=== PATIENT | male | born 1965 | race Two or more races ===

== ENCOUNTER 2017-09-23 19:58 | Emergency (ER) | payer MEDICAID ==
[~2017-09-23] VITALS: Ht 170.2 cm; Wt 99.8 kg
[2017-09-23] MEDS ORDERED: Tubing IV Cassette IV ONE (21:04)
[2017-09-23] MEDS: Metoclopramide 10mg/2ml Inj IVP ONE (21:04)
[2017-09-23 21:18] LABS: BASOPHILS % (AUTO) 1.1 % (0.0-2.0); EOSINOPHILS % (AUTO) 5.3 % (0.0-3.0); LYMPHOCYTES % (AUTO) 39.2 % (20.0-45.0); MEAN CORPUSCULAR HEMOGLOBIN 31.9 PG (27.0-31.0); MEAN CORPUSCULAR HGB CONC 34.3 G/DL (32.0-36.0); MEAN CORPUSCULAR VOLUME 93 FL (80-99); MEAN PLATELET VOLUME 9.3 FL (6.5-10.1); MONOCYTES % (AUTO) 4.7 % (1.0-10.0); NEUTROPHILS % (AUTO) 49.6 % (45.0-75.0); PLATELET COUNT 219 K/UL (150-450); RED BLOOD COUNT 5.01 M/UL (4.70-6.10); RED CELL DISTRIBUTION WIDTH 11.2 % (11.6-14.8); WHITE BLOOD COUNT 8.4 K/UL (4.8-10.8)
[2017-09-23 21:27] LABS: ANION GAP 13 mmol/L (5-15); CALCIUM 9.1 MG/DL (8.5-10.1); CARBON DIOXIDE 24 MMOL/L (21-32); CHLORIDE 98 MMOL/L (98-107); CREATININE 1.3 MG/DL (0.55-1.30); GLOMERULAR FILTRATION RATE 57.3 mL/min (>60); POTASSIUM 3.4 MMOL/L (3.5-5.1); SODIUM 135 MMOL/L (136-145)
[2017-09-23 21:34] VITALS: BP 128/82
[2017-09-23 21:35] LABS: ALANINE AMINOTRANSFERASE 27 U/L (12-78); ALBUMIN/GLOBULIN RATIO 0.9 (1.0-2.7); ALCOHOL 417 mg/dL; ASPARTATE AMINO TRANSFERASE 20 U/L (15-37); TOTAL PROTEIN 8.1 G/DL (6.4-8.2)
[2017-09-23 21:36] LABS: ACETAMINOPHEN < 2 MCG/ML (10-30)
[2017-09-23 23:01] VITALS: BP 103/66
[2017-09-24] VITALS (7 sets, daily range): BP systolic 100–132; BP diastolic 63–81
--- NOTE | 2017-09-24 03:37 | Emergency Room Report ---
History of Present Illness General Chief Complaint: Altered Level of Consciousness Source: EMS ([facility] D.O[facility] Present Illness HPI Patient was brought in by paramedics for reports of altered mental status Patient had episode of vomiting upon arrival Initially difficult to arouse and obtain history Therefore patient had IV established and extensive evaluation Patient throughout the stay has become more responsive He denied any chest pain or headache He did report drinking alcohol History of present illness however still did remain fairly limited ([facility] D.O.) Allergies: Coded Allergies: No Known Allergies (Unverified , 09/23/17) Patient History Past Medical History: see triage record Pertinent Family History: none Reviewed Nursing Documentation: PMH: Agreed, PSxH: Agreed ([facility] D.O[facility] Nursing Documentation-PMH Past Medical History: Deferred ([facility] D.O[facility] Review of Systems All Other Systems: limited - Other than the ones mentioned in the history of present illness all others are reviewed however they do stay limited due to the patient's mental status ([facility] D.O.) Physical Exam Vital Signs Date Time Temp Pulse Resp B/P (MAP) Pulse Ox O2 Delivery O2 Flow Rate FiO2 09/23/17 19:57 100 18 122/72 98 Room Air 09/23/17 21:34 97.0 4.0 Sp02 EP Interpretation: reviewed, normal General Appearance: no apparent distress Head: normocephalic, atraumatic Eyes: bilateral eye PERRL, bilateral eye EOMI ENT: normal pharynx, no angioedema Neck: full range of motion, supple, thyroid normal Respiratory: lungs clear, normal breath sounds Cardiovascular #1: regular rate, rhythm Gastrointestinal: normal bowel sounds, non tender, soft Musculoskeletal: normal inspection Neurologic: responsive - To verbal and physical stimuli Skin: normal color, no rash Lymphatic: no adenopathy ([facility] D.O[facility] Medical Decision Making Diagnostic Impression: Primary Impression: Altered level of consciousness Additional Impressions: Alcohol intoxication Qualified Codes: F10.920 - Alcohol use, unspecified with intoxication, uncomplicated Hyperglycemia Leukocytosis Qualified Codes: D72.825 - Bandemia Labs Test 09/23/17 20:55 09/23/17 21:15 White Blood Count 8.4 K/UL (4.8-10.8) Red Blood Count 5.01 M/UL (4.70-6.10) Hemoglobin 16.0 G/DL (14.2-18.0) Hematocrit 46.7 % (42.0-52.0) Mean Corpuscular Volume 93 FL (80-99) Mean Corpuscular Hemoglobin 31.9 PG (27.0-31.0) Mean Corpuscular Hemoglobin Concent 34.3 G/DL (32.0-36.0) Red Cell Distribution Width 11.2 % (11.6-14.8) Platelet Count 219 K/UL (150-450) Mean Platelet Volume 9.3 FL (6.5-10.1) Neutrophils (%) (Auto) 49.6 % (45.0-75.0) Lymphocytes (%) (Auto) 39.2 % (20.0-45.0) Monocytes (%) (Auto) 4.7 % (1.0-10.0) Eosinophils (%) (Auto) 5.3 % (0.0-3.0) Basophils (%) (Auto) 1.1 % (0.0-2.0) Sodium Level 135 MMOL/L (136-145) Potassium Level 3.4 MMOL/L (3.5-5.1) Chloride Level 98 MMOL/L (98-107) Carbon Dioxide Level 24 MMOL/L (21-32) Anion Gap 13 mmol/L (5-15) Blood Urea Nitrogen 16 mg/dL (7-18) Creatinine 1.3 MG/DL (0.55-1.30) Estimat Glomerular Filtration Rate 57.3 mL/min (>60) Glucose Level 483 MG/DL (74-106) Calcium Level 9.1 MG/DL (8.5-10.1) Total Bilirubin 0.3 MG/DL (0.2-1.0) Aspartate Amino Transf (AST/SGOT) 20 U/L (15-37) Alanine Aminotransferase (ALT/SGPT) 27 U/L (12-78) Alkaline Phosphatase 138 U/L (46-116) Total Protein 8.1 G/DL (6.4-8.2) Albumin 3.9 G/DL (3.4-5.0) Globulin 4.2 g/dL Albumin/Globulin Ratio 0.9 (1.0-2.7) Salicylates Level 1.0 ug/mL (2.8-20) Acetaminophen Level < 2 MCG/ML (10-30) Serum Alcohol 417 mg/dL Urine Opiates Screen Negative (NEGATIVE) Urine Barbiturates Screen Negative (NEGATIVE) Phencyclidine (PCP) Screen Negative (NEGATIVE) Urine Amphetamines Screen Negative (NEGATIVE) Urine Benzodiazepines Screen Negative (NEGATIVE) Urine Cocaine Screen Negative (NEGATIVE) Urine Marijuana (THC) Screen Negative (NEGATIVE) ([facility] D.O[facility] ER Course Received signout at 6:30 AM On reevaluation, patient continues to be tachycardic to 105 Patient had multiple episodes of vomiting Labs were redrawn: Blood glucose much improved after insulin and fluid. K. normalized. No anion gap. ABG was done, no acidosis, mild hypoxia. Chest x-ray was re\re shot, question of left-sided infiltrate By 8:30 AM, he is awake and oriented - states he drank a lot holiday [employer] party last night, doesn't drink a lot normally. Did not take his metformin or glyburide yesterday. Denies other medical problems Denies recent fever, chills, chest pain, shortness of breath, , sick contacts States he feels well otherwise I expressed my concern for tachycardia, leukocytosis, mild hypoxia and stressed recommendation for admission for IV antibiotics, evaluation of hypoxia, and further management. However patient is adamant about going home He has capacity, is alert and oriented x3 He agreed to take oral antibiotics at home and understands to return to ER or nearest ER for worsening condition. ER course: Patient has remained stable during ED stay. Patient is to be discharged to home. Prescriptions given are augmentin Patient is instructed to follow up with their primary care doctor within 5 days. Strict return precautions discussed with patient such as fever, chills, worsening/severe pain, nausea, vomiting, which may indicate severe illness. Patient verbalizes understanding and agrees with plan. Please note that this Emergency Department Report was dictated using [employer] Intelligence[employer] personnel technology software, occasionally this can lead to erroneous entry secondary to interpretation by the dictation equipment (MARVIN REYES M.D.) EKG Diagnostic Results Rate: tachycardiac Rhythm: NSR ST Segments: no acute changes (MARVIN REYES M.D.) Rhythm Strip Diag. Results EP Interpretation: yes Rate: 105 Rhythm: NSR, no PVC's, no ectopy (MARVIN REYES M.D.) Chest X-Ray Diagnostic Results Chest X-Ray Diagnostic Results : Chest X-Ray Ordered: Yes # of Views/Limited/Complete: 1 View Indication: Other - tachycardia, hypoxia EP Interpretation: Yes Interpretation: no effusion, no pneumothorax, no acute cardiopulmonary disease, other - Left sided infltrate Electronically Signed by: Dr Marvin Reyes MD (MARVIN REYES M.D.) Last Vital Signs Date Time Temp Pulse Resp B/P (MAP) Pulse Ox O2 Delivery O2 Flow Rate FiO2 09/24/17 02:37 108 23 113/71 97 Nasal Cannula 2.0 09/23/17 21:34 97.0 ([facility] D.O[facility] Status: improved (MARVIN REEYS M.D.) Disposition: AGAINST MEDICAL ADVICE Condition: Serious Referrals: NOT CHOSEN ZONIA/,REFERRING (PCP) [facility] D.O[facility] Sep 24, 2017 03:37 MARVIN REYES M.D. Sep 24, 2017 08:41
[2017-09-24 07:16] LABS: ABG ALLEN TEST POSITIVE; ABG BASE EXCESS -2.6
[2017-09-24 07:24] LABS: BASOPHILS % (AUTO) 0.5 % (0.0-2.0); EOSINOPHILS % (AUTO) 0.4 % (0.0-3.0); LYMPHOCYTES % (AUTO) 10.2 % (20.0-45.0); MEAN CORPUSCULAR HGB CONC 35.5 G/DL (32.0-36.0); MEAN CORPUSCULAR VOLUME 90 FL (80-99); MEAN PLATELET VOLUME 8.8 FL (6.5-10.1); MONOCYTES % (AUTO) 4.4 % (1.0-10.0); NEUTROPHILS % (AUTO) 84.6 % (45.0-75.0); PLATELET COUNT 221 K/UL (150-450); RED BLOOD COUNT 5.21 M/UL (4.70-6.10); WHITE BLOOD COUNT 17.7 K/UL (4.8-10.8)
[2017-09-24 07:25] LABS: ANION GAP 13 mmol/L (5-15); CALCIUM 8.7 MG/DL (8.5-10.1); CARBON DIOXIDE 25 MMOL/L (21-32); CHLORIDE 103 MMOL/L (98-107); CREATININE 0.9 MG/DL (0.55-1.30); GLOMERULAR FILTRATION RATE > 60 mL/min (>60); POTASSIUM 3.7 MMOL/L (3.5-5.1); SODIUM 141 MMOL/L (136-145)
[2017-09-24 07:29] LABS: ALANINE AMINOTRANSFERASE 26 U/L (12-78); ALBUMIN/GLOBULIN RATIO 0.9 (1.0-2.7); ASPARTATE AMINO TRANSFERASE 19 U/L (15-37); MAGNESIUM 1.6 MG/DL (1.8-2.4); TOTAL PROTEIN 7.9 G/DL (6.4-8.2)
[2017-09-24] MEDS ORDERED: AUGMENTIN 875-1 EAC1 ORAL (08:44)
--- NOTE | 2017-09-24 10:28 | Diagnostic Imaging Report ---
Indication: Altered mental status, alcohol intoxication Technique: spiral acquisitions obtained through the brain. Angled axial and coronal 5 x 5 mm slices were reconstructed. No IV contrast utilized. Radiation dose was minimized using automated exposure control Total dose length product 1478 mGycm. CTDIvol(s) 70 mGy Comparison: none FINDINGS: No acute hemorrhage or edema. No mass effect or midline shift. There is age-related enlargement of the ventricles and extra axial CSF spaces. There is periventricular deep white matter ischemic change. Normal kemp-white differentiation. Visualized orbits are unremarkable. Visualized sinuses are unremarkable. Intact calvarium. IMPRESSION: Chronic and age-related changes. Negative for acute intracranial bleed or mass effect This agrees with the preliminary interpretation provided overnight by [facility]. The CT scanner at [facility] is accredited by the [employer] and the scans are performed using protocols designed to limit radiation exposure to as low as reasonably achievable to attain images of sufficient resolution adequate for diagnostic evaluation
--- NOTE | 2017-09-24 10:29 | Diagnostic Imaging Report ---
Indication: Shortness of breath Technique: One view of the chest Comparison: none Findings: Lungs and pleural spaces are clear. Heart size is normal. Aorta is tortuous Impression: No acute process
--- NOTE | 2017-09-24 11:38 | Diagnostic Imaging Report ---
Indication: Shortness of breath Technique: One view of the chest Comparison: 09/23/2017 Findings: Normal heart size. Tortuous aorta. Better inspiration currently. No other significant interim change Impression: No acute process
--- NOTE | 2017-09-26 14:39 | Cardiology Report ---
APPROVED REPORT EKG Measurement Heart [id number] [place] [id number] Normal sinus rhythm Cannot rule out Anterior infarct, age undetermined Abnormal ECG
--- NOTE | 2017-09-26 14:41 | Cardiology Report ---
APPROVED REPORT EKG Measurement Heart [id number] [place] [id number] Normal sinus rhythm Cannot rule out Anterior infarct, age undetermined Abnormal ECG
== END 2017-09-24 08:58 | disposition left against medical advice (07) ==
LOC: EDBD 19:58 → EMR 20:49 → CANBEDREQ 09-24 08:42 → EMR 09-24 08:58
DX: R41.82 Altered mental status, unspecified (principal); F10.129 Alcohol abuse with intoxication, unspecified; R00.0 Tachycardia, unspecified; R09.02 Hypoxemia; D72.829 Elevated white blood cell count, unspecified; R73.9 Hyperglycemia, unspecified
CPT/HCPCS: 36415; 36600; 70450; 71010; 80053; 80307; 80329; 82009; 82803; 82962; 83690; 83735; 84484; 85025; 93005; 96361; 96372; 96374; 96375; 99284; J1815; J2405; J2765